=== PATIENT | female | born 1960 | race Caucasian/White ===

== ENCOUNTER → 2020-01-14 | Outpatient (CLI) | payer OTHER ==
[~2020-01-14] VITALS: Ht 162.6 cm; Wt 81.8 kg
[~2020-01-14] MED LIST: GADOBUTROL 7.5 MMOL/7.5 ML (GADAVIST) VIAL IV ONE; IOHEXOL 300 MG/ML 50 ML (OMNIPAQUE 300) VIAL IV ONE; LIDOCAINE 1% INJ 20 ML 20 ML VIAL INJ ONE
[2020-01-14 14:32] LABS: ALBUMIN 4.7 GM/DL (3.2-4.5)
[2020-01-14 14:33] LABS: CHLORIDE 108 MMOL/L (98-107); POTASSIUM 3.9 MMOL/L (3.6-5.0); SODIUM 144 MMOL/L (135-145)
[2020-01-14 14:34] LABS: CALCIUM 10.3 MG/DL (8.5-10.1)
[2020-01-14 14:35] LABS: GLUCOSE 111 MG/DL (70-105); TOTAL PROTEIN 7.5 GM/DL (6.4-8.2)
[2020-01-14 14:36] LABS: CARBON DIOXIDE 22 MMOL/L (21-32)
[2020-01-14 14:37] LABS: BILIRUBIN,TOTAL 0.5 MG/DL (0.1-1.0)
[2020-01-14 14:38] LABS: ALKALINE PHOSPHATASE 76 U/L (40-136)
[2020-01-14 14:39] LABS: CREATININE SERUM 0.87 MG/DL (0.60-1.30); GFR ESTIMATED > 60
[2020-01-14 14:40] LABS: BUN/CREATININE RATIO 26
[2020-01-14 14:41] LABS: ALANINE AMINOTRANSFERASE 46 U/L (0-55)
--- NOTE | 2020-01-14 16:13 | Diagnostic Imaging Report ---
MRI LT UPPER EXT JOINT WITH TECHNIQUE: Multiplanar, multisequence MR imaging of the left shoulder was performed with contrast. COMPARISON: None available. INDICATION: Left shoulder pain. FINDINGS: Rotator cuff: There is a full-thickness tear in the anterior one-half of the supraspinatus that extends over a length of 1.5 cm in AP direction. The torn fibers are retracted approximately to the level of the mid humeral head. The infraspinatus and teres minor are intact. Subscapularis has mild tendinopathy with low-grade partial-thickness tearing of the deep insertional fibers. No rotator cuff muscle atrophy. Glenoid labrum: There is some abnormal signal extending into the superior aspect of the labrum, suggestive of a nondisplaced radial tear. No paralabral cyst. Long head of biceps: Long head of biceps is normally positioned within the bicipital groove. The intracapsular segment is intact. Bones and cartilage: Humeral head is normal in morphology without fracture or focal osseous lesion. No glenohumeral chondromalacia. Mild degenerative changes of the acromioclavicular joint. 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 Soft tissues: No proliferative synovitis or loose bodies in the glenohumeral joint. No MRI findings to suggest adhesive capsulitis. Contrast within the subacromial and subdeltoid space is due to full-thickness rotator cuff tear. IMPRESSION: 1. Full-thickness tear of the anterior one-half of the supraspinatus has torn fibers retracted to the level of the mid humeral head. No rotator cuff muscle atrophy. 2. Nondisplaced radial tear in the superior labrum. No paralabral cyst. 3. 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 Dictated by: Dictated on workstation # [id number]
--- NOTE | 2020-01-14 16:33 | Diagnostic Imaging Report ---
INDICATION: Shoulder pain. EXAMINATION: Left shoulder arthrogram. COMPARISON: There are no prior studies available for comparison. PROCEDURE: Following aseptic preparation of the skin and administration of local anesthesia, a 19-gauge needle was advanced into the glenohumeral joint using fluoroscopic guidance. Subsequently a 14 mL mixture of sodium chloride, Omnipaque 240 and Gadavist was infused. The patient tolerated the procedure well and was sent to the MR suite in good condition. IMPRESSION: There has been successful injection of the glenohumeral joint on the left. MRI is pending for further study. Dictated by: Dictated on workstation # [id number]
== END ==
LOC: RAD 13:34
PROVIDERS: ATTEND Nurse Practitioner
DX: S46.011A Strain of muscle(s) and tendon(s) of the rotator cuff of right shoulder, initial encounter (principal); S43.431A Superior glenoid labrum lesion of right shoulder, initial encounter; X58.XXXA Exposure to other specified factors, initial encounter
CPT/HCPCS: 23350; 36415; 73040; 73222; 80053

== ENCOUNTER → 2020-02-06 | Outpatient (CLI) | payer OTHER | LOC: LABNPT 08:53 | PROVIDERS: ATTEND Orthopaedic Surgery | DX: Z11.59 Encounter for screening for other viral diseases (principal); M75.102 Unspecified rotator cuff tear or rupture of left shoulder, not specified as traumatic | CPT/HCPCS: 87635 ==

== ENCOUNTER → 2021-11-21 | Outpatient (CLI) | payer BC, OTHER ==
--- NOTE | 2021-11-21 16:42 | Diagnostic Imaging Report ---
EXAMINATION: Thoracic spine radiographs, 2 views. COMPARISON: None. HISTORY: 61-year-old female, mid back pain. FINDINGS: There are multilevel disc degenerative changes of the thoracic spine. There is no identified compression deformity or other fracture. The alignment of the thoracic spine is unremarkable. IMPRESSION: 1. No identified compression deformity or fracture. 2. Unremarkable alignment of the thoracic spine. 3. Multilevel mild to moderate disc degenerative changes of the thoracic spine. Dictated by: Dictated on workstation # [id number]
--- NOTE | 2021-11-21 17:52 | Diagnostic Imaging Report ---
CLINICAL INDICATION: Patient with low back pain and thoracic spine pain. EXAM: X-ray of the lumbar spine, 3 views. COMPARISON: None. FINDINGS: There is mild left curvature involving the thoracolumbar spine. There is no acute fracture or dislocation. There are mild to moderately hypertrophic spurs throughout the thoracolumbar spine most pronounced in the upper portion. There is mild loss of disk space height at the L3-L4 level. There is lower lumbar spine facet arthropathy. Sacroiliac joint shows no significant abnormality. 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 Dictated by: Dictated on workstation # [id number]
== END ==
LOC: RAD 12:12
DX: M47.816 Spondylosis without myelopathy or radiculopathy, lumbar region (principal); M51.34 Other intervertebral disc degeneration, thoracic region
CPT/HCPCS: 72070; 72100

== ENCOUNTER 2022-01-04 11:37 | Outpatient (RCR) | payer BC ==
[2022-01-04 13:59] LABS: BASOPHILS % (AUTO) 0 % (0-10); EOSINOPHILS # (AUTO) 0.1 10^3/uL (0.0-0.3); EOSINOPHILS % (AUTO) 2 % (0-10); HEMATOCRIT 42 % (35-52); HEMOGLOBIN 14.2 g/dL (11.5-16.0); LYMPHOCYTES # (AUTO) 1.4 10^3/uL (1.0-4.0); LYMPHOCYTES % (AUTO) 26 % (12-44); MEAN CORPUSCULAR HEMOGLOBIN 31 pg (25-34); MEAN CORPUSCULAR HGB CONC 34 g/dL (32-36); MEAN CORPUSCULAR VOLUME 89 fL (80-99); MEAN PLATELET VOLUME 10.4 fL (9.0-12.2); MONOCYTES # (AUTO) 0.4 10^3/uL (0.0-1.0); MONOCYTES % (AUTO) 7 % (0-12); NEUTROPHILS # (AUTO) 3.5 10^3/uL (1.8-7.8); NEUTROPHILS % (AUTO) 64 % (42-75); PLATELET COUNT 203 10^3/uL (130-400); WHITE BLOOD COUNT 5.5 10^3/uL (4.3-11.0)
[2022-01-04 14:16] LABS: ALANINE AMINOTRANSFERASE 43 U/L (0-55); ALBUMIN 4.6 GM/DL (3.2-4.5); ALKALINE PHOSPHATASE 85 U/L (40-136); BILIRUBIN,TOTAL 0.5 MG/DL (0.1-1.0); BUN/CREATININE RATIO 22; CALCIUM 10.4 MG/DL (8.5-10.1); CARBON DIOXIDE 30 MMOL/L (21-32); CHLORIDE 105 MMOL/L (98-107); CREATININE SERUM 0.88 MG/DL (0.60-1.30); GFR ESTIMATED 74; GLUCOSE 138 MG/DL (70-105); POTASSIUM 4.3 MMOL/L (3.6-5.0); SODIUM 142 MMOL/L (135-145); TOTAL PROTEIN 7.3 GM/DL (6.4-8.2)
== END 2022-01-07 | disposition home or self-care (01) ==
LOC: ONC 11:37
PROVIDERS: ATTEND Internal Medicine Hematology & Oncology
DX: C50.911 Malignant neoplasm of unspecified site of right female breast (principal); E03.9 Hypothyroidism, unspecified; N89.9 Noninflammatory disorder of vagina, unspecified; Z90.13 Acquired absence of bilateral breasts and nipples; N95.1 Menopausal and female climacteric states
CPT/HCPCS: 80053; 85025; G0463 ×2; 36415; 99204; 99214

== ENCOUNTER 2022-05-26 10:08 | Outpatient (RCR) | payer BC | END 2022-06-09 | disposition home or self-care (01) | LOC: ONC 10:08 | PROVIDERS: ATTEND Internal Medicine Hematology & Oncology | DX: C50.111 Malignant neoplasm of central portion of right female breast (principal); E03.9 Hypothyroidism, unspecified; N89.8 Other specified noninflammatory disorders of vagina; Z90.710 Acquired absence of both cervix and uterus; Z90.13 Acquired absence of bilateral breasts and nipples | CPT/HCPCS: 99213 ==

== ENCOUNTER → 2022-06-13 | Outpatient (CLI) | payer BC ==
--- NOTE | 2022-06-13 14:30 | Diagnostic Imaging Report ---
INDICATION: Breast cancer and postmenopausal COMPARISON: Baseline FINDINGS: AP Spine L1-L4: [BMD (g/cm2): 1.088] [T-Score: -0.9] [Z-Score: 0.0] [BMD Previous: na] [BMD % Change: na] LT Hip Neck: [BMD (g/cm2): 0.891] [T-Score: -1.1] [Z-Score: 0.0] LT Hip Total: [BMD (g/cm2):1.071] [T-Score:0.5] [Z-Score: 1.2] [BMD Previous: na] [BMD % Change: na] RT Hip Neck: [BMD (g/cm2):0.910] [T-Score:-0.9] [Z-Score:0.1] RT Hip Total: [BMD (g/cm2):1.044] [T-score:0.3] [Z-Score:1.0] [BMD Previous:na] [BMD % Change:na] *Indicates significant change from prior examination based on 95% confidence level. World Health Organization criteria for BMD interpretation classify patients as Normal (T-score at or above -1.0), Osteopenic (T-score between -1.0 and -2.5) or Osteoporotic (T-score at or below -2.5). LIMITATIONS AND MODIFICATION: None. FRACTURE RISK (FRAX SCORE): The ten year probability of (%): Major Osteoporotic Fracture: [7.6] Hip Fracture: [0.5] IMPRESSION: 1. Osteopenia (Low bone mass). 2. Baseline examination. 3. See below National Osteopor[employer] Foundation guidelines on when to potentially initiate pharmacologic therapy. Based on the National Osteoporosis Foundation Guidelines, pharmacologic treatment should be initiated in any of the following, unless clinical conditions suggest otherwise: * Any patient with prior fragility fracture of the hip or vertebrae. A spine fracture indicates 5X risk for subsequent spine fracture and 2X risk for subsequent hip fracture. * Osteoporosis (T-score <-2.5). * Postmenopausal women and men age 50 and older with low bone mass/osteopenia (T-score between -1.0 and -2.5) by DXA and 10-year major osteoporotic fracture greater than 20% or a 10-year probability of hip fracture greater than 3%. These fracture risks are supplied above in the FRAX score, if applicable. * Clinician judgement and/or patient preferences may indicate treatment for people with 10-year fracture probabilities above or below these levels. Dictated by: Dictated on workstation # [id number]
== END ==
LOC: RAD 09:39
PROVIDERS: ATTEND Internal Medicine Hematology & Oncology
DX: C50.111 Malignant neoplasm of central portion of right female breast (principal); M85.80 Other specified disorders of bone density and structure, unspecified site; Z78.0 Asymptomatic menopausal state
CPT/HCPCS: 77080

== ENCOUNTER 2022-11-24 09:32 | Outpatient (RCR) | payer BC ==
[2022-11-24 09:53] LABS: BASOPHILS % (AUTO) 0 % (0-10); EOSINOPHILS # (AUTO) 0.1 10^3/uL (0.0-0.3); EOSINOPHILS % (AUTO) 4 % (0-10); HEMATOCRIT 41 % (35-52); HEMOGLOBIN 14.3 g/dL (11.5-16.0); LYMPHOCYTES # (AUTO) 1.2 10^3/uL (1.0-4.0); LYMPHOCYTES % (AUTO) 31 % (12-44); MEAN CORPUSCULAR HEMOGLOBIN 31 pg (25-34); MEAN CORPUSCULAR HGB CONC 35 g/dL (32-36); MEAN CORPUSCULAR VOLUME 88 fL (80-99); MEAN PLATELET VOLUME 11.1 fL (9.0-12.2); MONOCYTES # (AUTO) 0.3 10^3/uL (0.0-1.0); MONOCYTES % (AUTO) 7 % (0-12); NEUTROPHILS # (AUTO) 2.3 10^3/uL (1.8-7.8); NEUTROPHILS % (AUTO) 58 % (42-75); PLATELET COUNT 158 10^3/uL (130-400); WHITE BLOOD COUNT 3.9 10^3/uL (4.3-11.0)
[2022-11-24 10:13] LABS: ALBUMIN 4.5 GM/DL (3.2-4.5); BILIRUBIN,TOTAL 0.6 MG/DL (0.1-1.0); CALCIUM 10.3 MG/DL (8.5-10.1); CREATININE SERUM 0.79 MG/DL (0.60-1.30); POTASSIUM 3.8 MMOL/L (3.6-5.0); TOTAL PROTEIN 7.2 GM/DL (6.4-8.2)
== END 2022-12-08 | disposition home or self-care (01) ==
LOC: ONC 09:32
PROVIDERS: ATTEND Internal Medicine Hematology & Oncology
DX: C50.912 Malignant neoplasm of unspecified site of left female breast (principal); D72.819 Decreased white blood cell count, unspecified; E03.9 Hypothyroidism, unspecified; N89.8 Other specified noninflammatory disorders of vagina; Z90.710 Acquired absence of both cervix and uterus; Z90.13 Acquired absence of bilateral breasts and nipples
CPT/HCPCS: 36415; 80053; 85025